=== PATIENT | female | born 1955 | race Caucasian/White ===

== ENCOUNTER → 2017-05-26 | Outpatient (CLI) | payer BC ==
[~2017-05-26] MED LIST: B COMPLEX1 CA1 PO; [UNRECOGNIZED DRUG - OTHER]
--- NOTE | ~2017-05-26 | US6 ---
[facility] A Service of [facility] RADIOLOGY TEXT RESULTS PATIENT: SERVANDO MO LOCATION: SG : 51 UNIT #: [id number] AGE: [address]: ARLINE MANSFIELD MD SEX: F ORDER DR: [id number] [address] [address] [id number] O MR#: [id number] Acc #: [id number] NAME: SERVANDO MO : 1955 SEX: F STUDY DATE/TIME: 05/26/2017 9:42 UNIT: [facility] ROOM: STUDY DESCRIPTION: US Abdominal Limited Attending Physician: Bolivar Mansfield M.D. Referring Physician: Bolivar Mansfield M.D. Ordering Physician: Bolivar Mansfield M.D. Primary Care Physician: Bolivar Mansfield M.D. MEDICAL IMAGING REPORT This report is preliminary unless electronic signature is present. EXAM Right upper quadrant ultrasound. INDICATION Hemangioma which was diagnosed on a prior ultrasound from September 25, 2016. TECHNIQUE Tee-scale and color Doppler sonographic images were obtained through the patient's right upper quadrant. FINDINGS Visualized portions of the pancreas appear unremarkable. Liver is enlarged measuring up to 18.3 cm in length. Patient is again noted to have a hemangioma measuring up to about 5.1 x 5.0 x 5.0 cm of days exam which is probably not significantly changed when compared to September 2015. No additional hepatic lesions are seen. Organ Grinder questioned some possible pericholecystic fluid. However, I am not convinced that this is a true finding. Certainly there is no gallbladder wall thickening and no stones or sludge are seen within the gallbladder. The right kidney is normal in appearance. There are no solid or cystic renal masses and there is no hydronephrosis. IMPRESSION 1. Stable hemangioma. Again seen within the liver. 2. Hepatomegaly. This was actually probably also present on the prior CT from September 2015. 3. Organ Grinder questions some mild pericholecystic fluid. I am not convinced that this is a true finding. Certainly there is no gallbladder wall thickening or stones or sludge seen within the gallbladder. [facility] A Service of [facility] & [facility] RADIOLOGY TEXT RESULTS PATIENT: SERVANDO MO LOCATION: [facility] : 51 UNIT #: [id number] AGE: [address]: ARLINE MANSFIELD MD SEX: F ORDER DR: Dictated by... Dona Pope M.D. THIS IS AN ELECTRONICALLY VERIFIED REPORT Dona Pope M.D. at 05/27/2017 4:45 PM AFF/carmen TD: 05/26/2017 17:32 JOB #: [id number] MEDICAL IMAGING REPORT Page 1 of 1
== END | disposition home or self-care (01) ==
LOC: SGUS 09:37
DX: D18.03 Hemangioma of intra-abdominal structures (principal); R16.0 Hepatomegaly, not elsewhere classified
CPT/HCPCS: 76705